=== PATIENT | male | born 1960 | race Caucasian/White ===

== ENCOUNTER 2016-05-28 10:30 | Emergency (ER) | payer BC ==
[2016-05-28 11:34] VITALS: BP 150/80
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
--- NOTE | 2016-05-28 14:04 | RAD ---
INDICATION: Bilateral rib pain COMPARISON: None TECHNIQUE: Multiple views of the ribs were obtained. FINDINGS: Bones: There is no evidence of acute rib fracture. LUNGS: The lungs are clear. There is no pneumothorax. Pleural spaces: There is no evidence of hemothorax. Other: There are clips in left axillary region. IMPRESSION: NO ACUTE RIB FRACTURE
== END 2016-05-28 14:21 | disposition home or self-care (01) ==
LOC: UCEAST 10:30
DX: S20.20XA Contusion of thorax, unspecified, initial encounter (principal); S70.12XA Contusion of left thigh, initial encounter; V86.59XA Driver of other special all-terrain or other off-road motor vehicle injured in nontraffic accident, initial encounter; Y93.89 Activity, other specified; Y92.9 Unspecified place or not applicable; F17.210 Nicotine dependence, cigarettes, uncomplicated
CPT/HCPCS: 71110; 99201; G0463